=== PATIENT | female | born 1955 | race Caucasian/White ===

== ENCOUNTER → 2017-11-14 | Outpatient (CLI) | payer BC ==
[~2017-11-14] MED LIST: COZAAR 50MG50 MG/TAB PO; PREDNISONE20 MG PO
== END ==
LOC: MC.RAD 13:11
DX: Z12.31 Encounter for screening mammogram for malignant neoplasm of breast (principal)

== ENCOUNTER → 2018-03-07 | Outpatient (CLI) | payer BC | LOC: COL.RAD 14:00 | DX: S49.91XA Unspecified injury of right shoulder and upper arm, initial encounter (principal); S46.111A Strain of muscle, fascia and tendon of long head of biceps, right arm, initial encounter; M75.121 Complete rotator cuff tear or rupture of right shoulder, not specified as traumatic; M19.011 Primary osteoarthritis, right shoulder; M75.81 Other shoulder lesions, right shoulder; Z87.39 Personal history of other diseases of the musculoskeletal system and connective tissue ==

== ENCOUNTER → 2019-12-15 | Outpatient (CLI) | payer BC | LOC: MC.RAD 11:07 | DX: Z12.31 Encounter for screening mammogram for malignant neoplasm of breast (principal) ==

== ENCOUNTER 2021-01-27 08:24 | Day surgery (SDC) | payer BC ==
[~2021-01-27] VITALS: Ht 157.5 cm; Wt 73.4 kg
[2021-01-27 09:18] VITALS: BP 149/99; PULSE 85; TEMP 96.7
[2021-01-27] MEDS ORDERED: SINGULAIR 110 MG/TAB PO (09:49)
[2021-01-27] MEDS ORDERED: PREMARIN .3MG0.3 MG PO (09:49)
[2021-01-27] MEDS ORDERED: BENICAR 20MG TA20 MG PO (09:50)
[2021-01-27] MEDS ORDERED: PROTONIX 40MG T40 MG PO (09:50)
[2021-01-27] MEDS ORDERED: FLONASEALLERGY NS (09:51)
[2021-01-27] MEDS ORDERED: VITAMINC1000TA PO (09:51)
[2021-01-27] MEDS ORDERED: MASON NATURAL2000 IU PO (09:52)
[2021-01-27] MEDS ORDERED: B-121000 MCG PO (09:53)
[2021-01-27] MEDS ORDERED: MAGNESIUM200 MG PO (09:53)
[2021-01-27] MEDS ORDERED: SUDAFED 12 HOU120 MG PO (09:54)
[2021-01-27] MEDS ORDERED: TYLENOL 500MG500 MG PO (09:54)
[2021-01-27 11:00] VITALS: BP 120/66; PULSE 65
[2021-01-27 11:15] VITALS: BP 120/78; PULSE 59
[2021-01-27 11:30] VITALS: BP 134/76; PULSE 56
[2021-01-27 11:45] VITALS: BP 122/70; PULSE 53
--- NOTE | 2021-01-27 12:32 | NUR ---
1100 Pt returns from endo procedure via cart and RN assist to [facility] [place] [facility]. Chair brought to cartside to aid in pt transferring to cart. Pt quite drowsy and desiring to rest. Monitors on and alarms set. Call light within reach. Report received from MALENA Mccarty. Pt denies any pain or nausea. 1130 Pt more alert now. Pt doesn't request anything to eat or drink now. No complications noted. 1215 Pt requesting water prior to discharge. 1232 Discharge instructions given to pt and . All questions answered to their satisfaction. Handed to pt are a thank you card and discharge information. 1232 Pt transferred out of the hospital via wheelchair and MALENA Bermeo assist, to private vehicle driven by pt's .
== END 2021-01-27 12:32 | disposition home or self-care (01) ==
LOC: SDCO 08:24
DX: K29.50 Unspecified chronic gastritis without bleeding (principal); K22.70 Barrett's esophagus without dysplasia; K21.00 Gastro-esophageal reflux disease with esophagitis, without bleeding; K57.30 Diverticulosis of large intestine without perforation or abscess without bleeding; K64.0 First degree hemorrhoids; D50.9 Iron deficiency anemia, unspecified; K63.5 Polyp of colon; I10 Essential (primary) hypertension; M19.90 Unspecified osteoarthritis, unspecified site; R15.9 Full incontinence of feces; Z79.899 Other long term (current) drug therapy; Z90.49 Acquired absence of other specified parts of digestive tract; Z90.710 Acquired absence of both cervix and uterus; Z87.891 Personal history of nicotine dependence; Z20.822 Contact with and (suspected) exposure to COVID-19
CPT/HCPCS: J2704; J7120

== ENCOUNTER → 2021-02-24 | Outpatient (CLI) | payer BC ==
[~2021-02-24] MED LIST changes: +B-121000 MCG PO; +BENICAR 20MG TA20 MG PO; +FLONASEALLERGY NS; +MAGNESIUM200 MG PO; +MASON NATURAL2000 IU PO; +PREMARIN .3MG0.3 MG PO; +PROTONIX 40MG T40 MG PO; +SINGULAIR 110 MG/TAB PO; +SUDAFED 12 HOU120 MG PO; +TYLENOL 500MG500 MG PO; +VITAMINC1000TA PO
== END ==
LOC: MC.RAD 13:19
DX: Z12.31 Encounter for screening mammogram for malignant neoplasm of breast (principal)

== ENCOUNTER → 2022-01-03 | Outpatient (CLI) | payer MEDICARE, OTHER | LOC: COL.RAD 13:04 | DX: M47.26 Other spondylosis with radiculopathy, lumbar region (principal); M47.817 Spondylosis without myelopathy or radiculopathy, lumbosacral region; M51.16 Intervertebral disc disorders with radiculopathy, lumbar region; M51.37 Other intervertebral disc degeneration, lumbosacral region; M41.86 Other forms of scoliosis, lumbar region; M48.061 Spinal stenosis, lumbar region without neurogenic claudication; M48.07 Spinal stenosis, lumbosacral region ==

== ENCOUNTER → 2022-02-28 | Outpatient (CLI) | payer MEDICARE, OTHER | LOC: MC.RAD 14:16 | DX: Z12.31 Encounter for screening mammogram for malignant neoplasm of breast (principal) ==

== ENCOUNTER → 2023-03-08 | Outpatient (CLI) | payer MEDICARE, OTHER ==
[~2023-03-08] MED LIST changes: +CEFTIN 250250 MG/TAB PO; +ZOFRAN ODT4 MG PO
== END ==
LOC: MC.RAD 13:31 → COL.RAD 13:45 → MC.RAD 13:45
DX: Z12.31 Encounter for screening mammogram for malignant neoplasm of breast (principal)

== ENCOUNTER 2024-02-18 11:35 | Day surgery (SDC) | payer MEDICARE, OTHER ==
[~2024-02-18] VITALS: Ht 157.5 cm; Wt 75.3 kg
[~2024-02-18 11:35] MED LIST changes: +LR 1,000 ML IV SCH; +Ondansetron 4 MG/2 ML VIAL IV PRN
[2024-02-18] MEDS ORDERED: Lidocaine PF 2% (20 MG/ML) 5 ML VIAL ONE (11:46)
[2024-02-18 12:21] VITALS: BP 127/65; PULSE 56; TEMP 97.2
[2024-02-18] MEDS ORDERED: EZALLOR SPRINKLE5 MG PO (12:33)
[2024-02-18] MEDS ORDERED: NEURONTIN300 MG/CAP PO (12:34)
[2024-02-18] MEDS ORDERED: ALLEGRA 180MG180 MG PO (12:34)
[2024-02-18] MEDS ORDERED: IRON TABLETS325 MG PO (12:35)
[2024-02-18 13:05] VITALS: BP 119/70; PULSE 59
--- NOTE | 2024-02-18 13:05 | NUR ---
PATIENT AMBULATED TO CHAIR WITH STEADY GAIT, ASSIST OF 2. DENIES PAIN, NAUSEA AND SHORTNESS OF BREATH. BREATHING REGULAR AND UNLABORED ON ROOM AIR. SKIN WARM AND DRY. IV IN PLACE. NURSE HANDOFF COMPLETED IN ROOM. SEE CHART FOR VITAL SIGNS.
--- NOTE | 2024-02-18 13:09 | NUR ---
PATIENT ALERT AND ORIENTED X3. PATIENT HAD WATER, NO DYSPHAGIA. 1311: MET WITH PATIENT AND SPOUSE IN ROOM TO DISCUSS PROCEDURE.
[2024-02-18 13:15] VITALS: BP 119/70; PULSE 59; TEMP 96.8
[2024-02-18 13:30] VITALS: BP 126/85; PULSE 60
[2024-02-18 13:35] VITALS: BP 126/85; PULSE 59
--- NOTE | 2024-02-18 13:45 | NUR ---
1335: PATIENT HAD A MUFFIN. 1340: DISCHARGE TEACHING COMPLETED WITH PRINTED EDUCATION AND INSTRUCTIONS SENT HOME WITH PATIENT. PATIENT VERBALIZED UNDERSTANDING OF TEACHING. 1342: IV REMOVED. GAUZE AND COBAN PLACED OVER SITE. 1345: PATIENT DISCHARGED HOME WITH [facility].
== END 2024-02-18 13:45 | disposition home or self-care (01) ==
LOC: SDCO 11:35
DX: K31.7 Polyp of stomach and duodenum (principal); K22.70 Barrett's esophagus without dysplasia; K20.90 Esophagitis, unspecified without bleeding; I10 Essential (primary) hypertension; Z79.899 Other long term (current) drug therapy
CPT/HCPCS: J2704